=== PATIENT | female | born 2005 | race Hispanic/Latino ===

== ENCOUNTER 2023-07-16 21:16 | Emergency (ER) | payer MEDICAID ==
[~2023-07-16] VITALS: Ht 139.7 cm; Wt 32.7 kg
[2023-07-16 22:25] VITALS: O2SAT 98
[2023-07-16 22:26] VITALS: BP 115/76; PULSE 81; RESP 18
[2023-07-17 00:18] LABS: APPEARANCE,URINE CLEAR (CLEAR); BILIRUBIN,URINE NEGATIVE (NEGATIVE); COLOR,URINE YELLOW (YELLOW); GLUCOSE, URINE (UA) NEGATIVE (NEGATIVE); KETONES,URINE >=80 mg/dL (NEGATIVE); LEUKOCYTE ESTERASE ,URINE SMALL Leu/uL (NEGATIVE); NITRATE,URINE NEGATIVE (NEGATIVE); OCCULT BLOOD,URINE LARGE (NEGATIVE); PROTEIN,URINE 100 mg/dL (NEGATIVE); UROBILINOGEN,URINE 0.2 mg/dL (0.2-1.0)
[2023-07-17 00:31] LABS: RBC,URINE 26-50 /HPF (0-1); SQUAMOUS EPITHELIAL CELL,UR Few /HPF (0-2)
[2023-07-17 00:32] LABS: BACTERIA,URINE Few /HPF (None Seen); YEAST,URINE BUDDING Rare /HPF (None Seen)
[2023-07-17 00:59] LABS: BASOPHILS # (AUTO) 0.02 K/uL (0.00-0.20); BASOPHILS % (AUTO) 0.2 % (0.0-5.0); EOSINOPHILS # (AUTO) 0.06 K/uL (0.00-0.70); EOSINOPHILS % (AUTO) 0.6 % (0.0-8.0); HEMATOCRIT 35.5 % (36-48); IMMATURE GRANULOCYTE ABSOLUTE 0.02 K/uL (0-1); LYMPHOCYTES # (AUTO) 1.9 K/uL (1.0-4.8); LYMPHOCYTES % (AUTO) 17.9 % (21.0-51.0); MEAN CORPUSCULAR HEMOGLOBIN 31.4 pg (27.0-33.0); MEAN CORPUSCULAR HGB CONC 35.8 g/dL (32.0-36.0); MEAN CORPUSCULAR VOLUME 87.7 fL (80-100); MONOCYTES # (AUTO) 0.6 K/uL (0.1-1.0); MONOCYTES % (AUTO) 5.7 % (3.0-13.0); NEUTROPHILS % (AUTO) 75.4 % (40.0-77.0); PLATELET COUNT (AUTO) 238 K/uL (130-400); RED BLOOD CELL COUNT(AUTO) 4.05 MIL/uL (4.00-5.50); RED CELL DISTRIBUTION WIDTH 11.5 % (11.0-15.5); WHITE BLOOD COUNT (AUTO) 10.6 K/uL (4.8-10.8)
[2023-07-17 01:04] LABS: CREATININE 0.6 mg/dL (0.5-1.5); POTASSIUM 3.9 mmol/L (3.5-5.1)
[2023-07-17 01:09] LABS: BILIRUBIN,TOTAL 0.4 mg/dL (0.2-1.0); TOTAL PROTEIN, SERUM 6.8 g/dL (6.0-8.3)
[2023-07-17] MEDS ORDERED: PREN-67 PO (01:44)
== END 2023-07-17 01:55 | disposition home or self-care (01) ==
LOC: EDH 21:16
DX: O20.0 Threatened abortion (principal); Z3A.10 10 weeks gestation of pregnancy
CPT/HCPCS: 36415; 76801; 80053; 81001; 84702; 85025

== ENCOUNTER 2023-12-12 22:09 | Inpatient (IN) | payer MEDICAID ==
[~2023-12-12] VITALS: Ht 139.7 cm; Wt 40.8 kg
[~2023-12-12 22:09] MED LIST: PREN-67 PO
[2023-12-12] MEDS ORDERED: LACTATED RINGERS 1000ML 1,000 ML IV PRN (23:00)
[2023-12-12 23:19] LABS: HEMATOCRIT 29.3 % (36-48); MEAN CORPUSCULAR HEMOGLOBIN 30.7 pg (27.0-33.0); MEAN CORPUSCULAR HGB CONC 34.8 g/dL (32.0-36.0); MEAN CORPUSCULAR VOLUME 88.3 fL (80-100); RED BLOOD CELL COUNT(AUTO) 3.32 MIL/uL (4.00-5.50); RED CELL DISTRIBUTION WIDTH 11.5 % (11.0-15.5); WHITE BLOOD COUNT (AUTO) 8.3 K/uL (4.8-10.8)
[2023-12-12] MEDS ORDERED: AMPICILLIN 2GM+NS 100ML 100 ML IV SCH (23:20)
[2023-12-12] MEDS: AMPICILLIN 2GM+NS 100ML 100 ML IV ONE (23:23)
[2023-12-12 23:24] LABS: APPEARANCE,URINE CLOUDY (CLEAR); BILIRUBIN,URINE NEGATIVE (NEGATIVE); COLOR,URINE LIGHT-YELLOW (YELLOW); GLUCOSE, URINE (UA) NEGATIVE (NEGATIVE); KETONES,URINE NEGATIVE (NEGATIVE); LEUKOCYTE ESTERASE ,URINE 500 Leu/uL (NEGATIVE); NITRATE,URINE NEGATIVE (NEGATIVE); OCCULT BLOOD,URINE NEGATIVE (NEGATIVE); PROTEIN,URINE 10 mg/dL (NEGATIVE); UROBILINOGEN,URINE 0.2 mg/dL (0.2-1.0)
[2023-12-12] MEDS ORDERED: CELESTONE SOLUSPAN 6 MG/ML 5ML VIAL IM SCH (23:30)
[2023-12-12] MEDS: CELESTONE SOLUSPAN 6 MG/ML 5ML VIAL ONE (23:31)
[2023-12-12 23:36] LABS: ADD UA MICROSCOPIC YES
[2023-12-12 23:38] LABS: BACTERIA,URINE FEW /HPF (None Seen); MUCUS,URINE RARE LPF (None Seen); SQUAMOUS EPITHELIAL CELL,UR MANY /HPF (0-2); WBC,URINE 26-50 /HPF (0-1)
[2023-12-13] MEDS ORDERED: PORACTANT ALFA 240 MG/3 ML VIAL IH ONE (00:29)
[2023-12-13] MEDS ORDERED: PORACTANT ALFA 120 MG/1.5 ML VIAL IH ONE (00:35)
[2023-12-13 00:54] LABS: HIV 1&2 ANTIBODY Non-Reactive (Negative); HIV-1 p24 Antigen Non-Reactive (Negative)
[2023-12-13] MEDS: LIDOCAINE HCL 1% 20 ML VIAL ONE (01:10)
[2023-12-13 01:45] VITALS: BP 125/72; PULSE 115; RESP 18
[2023-12-13] MEDS: OXYTOCIN-LR 30 UNITS/500ML 500 ML IV SCH (01:46)
[2023-12-13] MEDS ORDERED: BENZOCAINE/LANOLIN/ALOE VERA 60 ML AEROSOL TP PRN (02:00)
[2023-12-13] MEDS ORDERED: LANOLIN 30GM OINTMENT TP PRN (02:00)
[2023-12-13] MEDS ORDERED: OXYTOCIN-LR 30 UNITS/500ML 500 ML IV SCH (02:00)
[2023-12-13] MEDS ORDERED: WITCH HAZEL 1 PAD TP PRN (02:00)
[2023-12-13] MEDS ORDERED: ACETAMINOPHEN WITH CODEINE 1 TAB TAB PO PRN (02:00)
[2023-12-13] MEDS ORDERED: ACETAMINOPHEN 325 MG TAB PO PRN (02:00)
[2023-12-13] MEDS: IBUPROFEN 600 MG TABLET PO PRN (02:03)
[2023-12-13 03:00] VITALS: BP 116/77; PULSE 72; RESP 18
[2023-12-13] MEDS ORDERED: AMPICILLIN 1GM+NS 50ML 50 ML IV SCH (03:00)
[2023-12-13 04:00] VITALS: BP 118/74; PULSE 74; RESP 18
[2023-12-13 04:23] VITALS: BP 116/77; PULSE 72; RESP 18
[2023-12-13 07:34] VITALS: BP 114/73; PULSE 75; RESP 14
[2023-12-13] MEDS: DOCUSATE SODIUM 100 MG CAP PO SCH (08:57)
[2023-12-13 11:25] VITALS: BP 107/61; PULSE 73; RESP 20
[2023-12-13 11:25] LABS: RAPID PLASMA REAGIN NONREACTIVE (NONREACTIVE)
== END 2023-12-13 14:35 | disposition home or self-care (01) | DRG 560 ==
LOC: EDH 22:09 → LDH 22:48 → OBSVTOIN 22:48 → LDH 23:09 → WSH 12-13 03:09
PROVIDERS: ADMIT Obstetrics & Gynecology; ATTEND Obstetrics & Gynecology
PROC: 10E0XZZ Delivery of Products of Conception, External Approach (ICD-10-PCS; principal; 2023-12-13)
PROC: 0HQ9XZZ Repair Perineum Skin, External Approach (ICD-10-PCS; 2023-12-13)
DX: O69.81X0 Labor and delivery complicated by cord around neck, without compression, not applicable or unspecified (principal); Z37.0 Single live birth; O60.14X0 Preterm labor third trimester with preterm delivery third trimester, not applicable or unspecified; O36.5930 Maternal care for other known or suspected poor fetal growth, third trimester, not applicable or unspecified; O70.0 First degree perineal laceration during delivery; Z3A.31 31 weeks gestation of pregnancy
CPT/HCPCS: 36415; 81001; 85027; 86592; 86701; 86850; 86900; 86901; 87088; 87340; 87390; G0378; J0290; J0702